=== PATIENT | male | born 1950 | race African-American/Black ===

== ENCOUNTER → 2017-06-17 | Outpatient (CLI) | payer BC, OTHER ==
[~2017-06-17] VITALS: Ht 170.2 cm; Wt 70.5 kg
[~2017-06-17] MED LIST: CATAPRES0.1 MG PO; COD LIVER OIL1 EACH PO; HYDROCHLOROTHIA25 MG PO
== END | disposition home or self-care (01) ==
LOC: AMB 09:36
PROC: 0DJD8ZZ Inspection of Lower Intestinal Tract, Via Natural or Artificial Opening Endoscopic (ICD-10-PCS; principal; 2017-06-17)
DX: Z12.11 Encounter for screening for malignant neoplasm of colon (principal); Z53.09 Procedure and treatment not carried out because of other contraindication; K64.8 Other hemorrhoids; N40.0 Benign prostatic hyperplasia without lower urinary tract symptoms
CPT/HCPCS: 93005

== ENCOUNTER → 2018-04-27 | Outpatient (CLI) | payer BC | END | disposition home or self-care (01) | LOC: CDC 10:57 | DX: Z01.810 Encounter for preprocedural cardiovascular examination (principal) | CPT/HCPCS: 93000 ==